=== PATIENT | female | born 1980 | race Caucasian/White ===

== ENCOUNTER 2019-02-02 08:11 | Outpatient (CLI) | payer BC ==
--- NOTE | 2019-02-02 08:48 | MMO ---
Right Breast MAMMO Unilat Diag DDI RT+JEVON. CLINICAL HISTORY: Patient is 38 years old and is seen for diagnostic exam. The patient has no family history of breast cancer. The patient has no personal history of cancer. VIEWS: The views performed were: right mediolateral oblique spot compression with tomosynthesis and right mediolateral. FILMS COMPARED: The present examination has been compared to a prior imaging study performed at [facility] on 12/02/2018. MAMMOGRAM FINDINGS: There are scattered fibroglandular densities. Tomosynthesis compression images show the abnormality to represent superimpostion of normal breast parenchyma. There are no suspicious masses, suspicious calcifications, or new areas of architectural distortion. IMPRESSION: THERE IS NO MAMMOGRAPHIC EVIDENCE OF MALIGNANCY. A ROUTINE FOLLOW-UP MAMMOGRAM AT AGE 42 IS RECOMMENDED. THE RESULTS OF THIS EXAM WERE SENT TO THE PATIENT. ACR BI-RADS Category 2 - Benign finding MAMMOGRAPHY NOTE: 1. A negative mammogram report should not delay a biopsy if a dominant of clinically suspicious mass is present. 2. Approximately 10% to 15% of breast cancers are not detected by mammography. 3. Adenosis and dense breasts may obscure an underlying neoplasm.
== END 2019-02-02 08:12 | disposition home or self-care (01) ==
LOC: BICMAMMO 08:11
PROVIDERS: ATTEND Family Medicine
DX: R92.2 Inconclusive mammogram (principal)
CPT/HCPCS: G0279

== ENCOUNTER 2022-08-21 17:41 | Emergency (ER) | payer BC | END 2022-08-21 19:17 | disposition home or self-care (01) | LOC: ERS 17:41 | DX: M79.89 Other specified soft tissue disorders (principal) | CPT/HCPCS: 36415; 85379 ==

== ENCOUNTER 2023-06-30 09:50 | Outpatient (CLI) | payer BC | END 2023-06-30 09:51 | disposition home or self-care (01) | LOC: RAD 09:50 | PROVIDERS: ATTEND Internal Medicine Critical Care Medicine | DX: R06.00 Dyspnea, unspecified (principal) | CPT/HCPCS: 71046 ==